=== PATIENT | female | born 1955 ===

== ENCOUNTER → 2023-02-21 08:52 | Outpatient (REF) | payer MEDICARE, BC, SELFPAY | LOC: WOUND 08:52 | PROVIDERS: ATTENDING PHYSICIAN Surgery; REFERRING PHYSICIAN Family Medicine | DX: T81.49XA Infection following a procedure, other surgical site, initial encounter (principal); S31.109A Unspecified open wound of abdominal wall, unspecified quadrant without penetration into peritoneal cavity, initial encounter; Z79.01 Long term (current) use of anticoagulants; N81.11 Cystocele, midline; N95.2 Postmenopausal atrophic vaginitis; X58.XXXA Exposure to other specified factors, initial encounter; Y83.8 Other surgical procedures as the cause of abnormal reaction of the patient, or of later complication, without mention of misadventure at the time of the procedure | CPT/HCPCS: 11042; 97597 ==

== ENCOUNTER → 2025-02-10 18:56 | Outpatient (REF) | payer MEDICARE, BC, SELFPAY | LOC: WDC 18:56 | PROVIDERS: ATTENDING PHYSICIAN Family Medicine | DX: Z12.31 Encounter for screening mammogram for malignant neoplasm of breast (principal) | CPT/HCPCS: 77063; 77067 ==

== ENCOUNTER 2025-02-18 06:30 | Outpatient (RCR) | payer MEDICARE, BC, SELFPAY | END 2025-02-18 23:59 | disposition home or self-care (01) | LOC: RPT 06:30 | PROVIDERS: ATTENDING PHYSICIAN Urology; FAMILY PHYSICIAN Family Medicine | DX: N30.10 Interstitial cystitis (chronic) without hematuria (principal); M62.89 Other specified disorders of muscle; K59.09 Other constipation; Z73.6 Limitation of activities due to disability; M62.81 Muscle weakness (generalized) | CPT/HCPCS: 97163; 97530 ==

== ENCOUNTER 2025-02-23 07:57 | Outpatient (RCR) | payer MEDICARE, BC, SELFPAY | END 2025-02-23 23:59 | disposition home or self-care (01) | LOC: RPT 07:57 | PROVIDERS: ATTENDING PHYSICIAN Urology; FAMILY PHYSICIAN Family Medicine | DX: N30.10 Interstitial cystitis (chronic) without hematuria (principal); M62.89 Other specified disorders of muscle; K59.09 Other constipation; Z73.6 Limitation of activities due to disability; M62.81 Muscle weakness (generalized) | CPT/HCPCS: 97110; 97140; 97530 ==

== ENCOUNTER 2025-04-20 14:52 | Outpatient (RCR) | payer MEDICARE, BC, SELFPAY | END 2025-04-20 23:59 | disposition home or self-care (01) | LOC: RPT 14:52 | PROVIDERS: ATTENDING PHYSICIAN Urology; FAMILY PHYSICIAN Family Medicine | DX: N30.10 Interstitial cystitis (chronic) without hematuria (principal); M62.89 Other specified disorders of muscle; K59.09 Other constipation; Z73.6 Limitation of activities due to disability; M62.81 Muscle weakness (generalized) | CPT/HCPCS: 97014; 97112; 97140; 97530 ==